=== PATIENT | female | born 1995 | race American Indian/Alaskan Native ===

== ENCOUNTER 2020-09-07 13:27 | Emergency (ER) | payer MEDICAID ==
--- NOTE | 2020-09-07 14:11 | Emergency Department Report ---
ED Lower Extremity HPI - General Chief Complaint: Extremity Problem,Nontraumatic Stated Complaint: FOOT/LEFT LEG PAIN Time Seen by Provider: 09/07/20 13:52 Source: patient Mode of arrival: Ambulatory Limitations: No Limitations - History of Present Illness Initial Comments: This is a 24-year-old female nontoxic, well nourished in appearance, no acute si gns of distress presents to the ED with c/o of right foot with radiation to right leg x1 day. Patient stated has some foot swelling. Patient stated that symptoms started while walking yesterday. Patient denies any trauma. Patient stated that she is on control. Patient stated pain radiates to calf area. Patient denies any numbness, tingling, fever, chills, nausea, vomiting, chest pain, shortness of breath, headache, stiff neck. Patient denies any joint swelling or joint redness. Patient denies decreased range of motion. Patient stated has decreased gait due to pain. Patient denies any allergies or significant past medical history. MD Complaint: leg injury, foot injury -: days(s) Injury: Leg: Left, Foot: Left Place: street/outdoors Severity: mild Severity scale (0 -10): 8 Improves With: immobilization Worsens With: weight bearing, palpation Associated Symptoms: swelling, able to partially bear weight. denies: snap/pop sensation, numbness, tingling, unable to bear weight - Related Data Previous Rx's Medication Instructions Recorded Last Taken Type Naproxen 500 mg PO PRN PRN #12 tablet 09/07/20 Unknown Rx Allergies Allergy/AdvReac Type Severity Reaction Status Date / Time No Known Allergies Allergy Unverified 09/07/20 13:50 ED Review of Systems ROS: Stated complaint: FOOT/LEFT LEG PAIN Other details as noted in HPI Comment: All other systems reviewed and negative Constitutional: denies: chills, fever Eyes: denies: eye pain, eye discharge, vision change ENT: denies: ear pain, throat pain Respiratory: denies: cough, shortness of breath, wheezing Cardiovascular: denies: chest pain, palpitations Endocrine: no symptoms reported Gastrointestinal: denies: abdominal pain, nausea, diarrhea Genitourinary: denies: urgency, dysuria, discharge Musculoskeletal: denies: back pain, joint swelling, arthralgia Skin: denies: rash, lesions Neurological: denies: headache, weakness, paresthesias Psychiatric: denies: anxiety, depression Hematological/Lymphatic: denies: easy bleeding, easy bruising ED Past Medical Hx - Past Medical History Previous Medical History?: No - Surgical History Past Surgical History?: No - Social History Smoking Status: Never Smoker Substance Use Type: Marijuana - Medications Home Medications: Home Medications Medication Instructions Recorded Confirmed Last Taken Type Naproxen 500 mg PO PRN PRN #12 tablet 09/07/20 Unknown Rx ED Physical Exam - General Limitations: No Limitations General appearance: alert, in no apparent distress - Head Head exam: Present: atraumatic, normocephalic - Eye Eye exam: Present: normal appearance - Neck Neck exam: Present: normal inspection, full ROM - Respiratory Respiratory exam: Absent: respiratory distress - Cardiovascular Cardiovascular Exam: Present: regular rate - Extremities Exam Extremities exam: Present: normal inspection, full ROM, tenderness, normal capillary refill, calf tenderness. Absent: joint swelling - Expanded Lower Extremity Exam Left Hip exam: Present: normal inspection, full ROM. Absent: tenderness, swelling Upper Leg exam: Present: normal inspection, full ROM. Absent: tenderness, swelling Knee exam: Present: normal inspection, full ROM. Absent: tenderness, swelling Lower Leg exam: Present: normal inspection, full ROM, tenderness. Absent: swelling, abrasion, laceration, ecchymosis, deformity, crepidus, dislocation, erythema, palpable cord, Bryan's sign Ankle exam: Present: normal inspection, full ROM. Absent: tenderness, swelling, abrasion, laceration, ecchymosis, deformity, crepidus, dislocation, erythema, anterior draw sign Foot/Toe exam: Present: full ROM, tenderness, swelling. Absent: abrasion, laceration, ecchymosis, deformity, crepidus, dislocation, erythema, amputation, puncture wound, foreign body, calcaneal tenderness, tenderness at base of 5th metatarsal, subungual hematoma Neuro vascular tendon exam: Present: no vascular compromise Gait: Positive: observed and limited by pain 1 - Slight swelling and pain noted here - Back Exam Back exam: Present: normal inspection, full ROM - Neurological Exam Neurological exam: Present: alert, oriented X3 - Psychiatric Psychiatric exam: Present: normal affect, normal mood - Skin Skin exam: Present: warm, dry, intact, normal color. Absent: rash ED Course Vital Signs 09/07/20 09/07/20 13:44 14:21 Temperature 98.4 F Pulse Rate 76 Respiratory 22 Rate Blood Pressure 118/74 [Left] O2 Sat by Pulse 100 Oximetry Vital Signs 09/07/20 13:44 Temperature 98.4 F Pulse Rate 76 Respiratory 22 Rate O2 Sat by Pulse 100 Oximetry - Reevaluation(s) Reevaluation #1: 09/07/20 14:13 Patient is speaking in full sentences with no signs of distress noted. ED Lower Extremity MDM - Radiology Data Referring Physician: ROSALIA PENDLETON Patient Name: MERRICK REA Date of : 1995 Sex: Female Report Date: 2020-09-07 Report Status: [place] [address] XRay Report Signed Patient: MERRICK REA MR#: [id number] : 1995 Acct:[id number] Age/Sex: 24 / F ADM Date: 09/07/20 Loc: ED Attending Dr: Ordering Physician: ROSALIA PENDLETON NP Date of Service: 09/07/20 Procedure(s): XR foot 3+V LT Accession Number(s): [id number] cc: ROSALIA PENDLETON NP Fluoro Time In Minutes: EXAMINATION: Left foot radiograph, 3 views, 09/07/2020 CLINICAL INFORMATION: Left foot pain and trauma COMPARISON: None. FINDINGS: There is no evidence of acute fracture or dislocation of the left foot. No focal soft tissue swelling is identified. Signer Name: Angelica Sarmiento MD Signed: 2:49 PM Workstation Name: [id number] Transcribed By: EB Dictated By: Angelica Sarmiento MD Electronically Authenticated By: Angelica Sarmiento MD Signed Date/Time: 09/07/20 1449 DD/ 1448 TD/TT: Referring Physician: ROSALIA PENDLETON Patient Name: MERRICK REA Date of : 1995 Sex: Female Report Date: 2020-09-07 Report Status: Finalized [facility] [address] [place] [address] Vascular Lab Report Signed Patient: MERRICK REA MR#: [id number] : 1995 Acct:[id number] Age/Sex: 24 / F ADM Date: 09/07/20 Loc: ED Attending Dr: Ordering Physician: ROSALIA PENDLETON NP Date of Service: 09/07/20 Pr ocedure(s): VL venous duplex LE LT Accession Number(s): [id number] cc: ROSALIA PENDLETON NP DUPLEX DOPPLER LOWER EXTREMITY VEINS, LEFT INDICATION: left leg pain. TECHNIQUE: Duplex doppler imaging was performed through the veins of the left lower extremity using venous compression and other maneuvers. COMPARISON: None available. FINDINGS: Common femoral vein: Negative. Superficial femoral vein: Negative. Popliteal vein: Negative. Calf veins: Negative. Additional findings: None. IMPRESSION: Negative for DVT. Signer Name: Zhen Sanchez MD Signed: 09/07/2020 2:55 PM Workstation Name: [id number] Transcribed By: ES Dictated By: Zhen Sanchez MD Electronically Authenticated By: Zhen Sanchez MD Signed Date/Time: 09/07/201454 DD/ 53 TD/TT: - Medical Decision Making This is a 24-year-old female that presents with right foot and leg strain. Patient is stable and was examined by me. I referred patient to an orthopedic doctor for further evaluation for possible MRI. X-ray and ultrasound Doppler has been obtained and dictated by the radiologist. Patient is notified of the x-ray and ultrasound report with noted by the patient. No joint swelling. No ecchymosis. no joint redness or swelling. Not warm to touch. No signs of cellu lites present. Patient was instructed to RICE therapy. Patient is discharged with naproxen. At time of discharge, the patient does not seem toxic or ill in appearance. No acute signs of distress noted. Patient agrees to discharge treatment plan of care. No further questions noted by the patient. - Differential Diagnosis DVT, fracture, strain Critical care attestation.: If time is entered above; I have spent that time in minutes in the direct care of this critically ill patient, excluding procedure time. ED Disposition Clinical Impression: Strain of left foot Qualifiers: Encounter type: initial encounter Qualified Code(s): S96.912A - Strain of unspecified muscle and tendon at ankle and foot level, left foot, initial encounter Muscle strain of left lower leg Qualifiers: Encounter type: initial encounter Qualified Code(s): S86.912A - Strain of unspecified muscle(s) and tendon(s) at lower leg level, left leg, initial encounter Disposition: TO HOME OR SELFCARE Is pt being admited?: No Does the pt Need Aspirin: No Condition: Stable Instructions: Muscle Strain, [id number], RICE Therapy for Routine Care of Injuries, [id number] Additional Instructions: Follow-up with a orthopedic doctor in 3-5 days or if symptoms worsen and continue return to emergency room as soon as possible. Prescriptions: Naproxen 500 mg PO PRN PRN #12 tablet PRN Reason: Pain , Severe (7-10) Referrals: PRIMARY CARE, [Primary Care Provider] - 3-5 Days SAM AGUSTIN MD [Staff Physician] - 3-5 Days Time of Disposition: 15:21
[2020-09-07 14:26] VITALS: BP 118/74
--- NOTE | 2020-09-07 14:53 | XRay Report ---
EXAMINATION: Left foot radiograph, 3 views, 09/07/2020 CLINICAL INFORMATION: Left foot pain and trauma COMPARISON: None. FINDINGS: There is no evidence of acute fracture or dislocation of the left foot. No focal soft tissu e swelling is identified. Signer Name: Angelica Sarmiento MD Signed: 09/07/2020 2:49 PM Workstation Name: [id number]
--- NOTE | 2020-09-07 14:59 | Vascular Lab Report ---
DUPLEX DOPPLER LOWER EXTREMITY VEINS, LEFT INDICATION: left leg pain. TECHNIQUE: Duplex doppler imaging was performed through the veins of the left lower extremity using venous compr ession and other maneuvers. COMPARISON: None available. FINDINGS: Common femoral vein: Negative. Superficial femoral vein: Negative. Popliteal vein: Negative. Calf veins: Negative. Additional findings: None. IMPRESSION: Negative for DVT. Signer Name: Zhen Sanchez MD Signed: 09/07/2020 2:55 PM Workstation Name: [id number]
== END 2020-09-07 18:45 | disposition home or self-care (01) ==
LOC: ED 13:27
DX: S96.912A Strain of unspecified muscle and tendon at ankle and foot level, left foot, initial encounter (principal); F12.10 Cannabis abuse, uncomplicated; Z79.899 Other long term (current) drug therapy; X58.XXXA Exposure to other specified factors, initial encounter; Y93.89 Activity, other specified; Y92.89 Other specified places as the place of occurrence of the external cause; Y99.8 Other external cause status

== ENCOUNTER 2020-09-25 13:33 | Outpatient (CLI) | payer MEDICAID | END 2020-09-25 13:34 | disposition home or self-care (01) | LOC: LABHHL 13:33 | PROVIDERS: ATTEND Surgery | DX: Z97.5 Presence of (intrauterine) contraceptive device (principal) | CPT/HCPCS: 88302 ==

== ENCOUNTER 2021-04-08 21:16 | Emergency (ER) | payer MEDICAID | END 2021-04-08 23:23 | disposition left against medical advice (07) | LOC: ED 21:16 | DX: R51.9 Headache, unspecified (principal); Z53.21 Procedure and treatment not carried out due to patient leaving prior to being seen by health care provider ==